=== PATIENT | male | born 1935 | race Caucasian/White ===

== ENCOUNTER 2019-03-01 06:55 | Observation (INO) | payer MEDICARE, OTHER ==
[2019-03-01] VITALS (11 sets, daily range): BP systolic 106–193; BP diastolic 63–94
[~2019-03-01] VITALS: Ht 172.7 cm; Wt 76.4 kg
[2019-03-01] MEDS ORDERED: BACITRACIN 50,000 UNIT in IV NORMAL SALINE 250ML 250 ML IRR ONE (07:15)
[2019-03-01 07:35] LABS: HEMATOCRIT 46.8 % (39.0-53.0); HEMOGLOBIN 15.8 g/dL (13.0-17.5); RED BLOOD COUNT 4.92 x10^6/uL (4.30-5.70); RED CELL DISTRIBUTION WIDTH 14.1 % (11.5-14.5); WHITE BLOOD COUNT 7.9 x10^3/uL (4.0-11.0)
[2019-03-01] MEDS ORDERED: CURC10PO PO (07:41)
[2019-03-01] MEDS ORDERED: ALPH600C5 PO (07:41)
[2019-03-01] MEDS ORDERED: VITA1TAB19 PO (07:41)
[2019-03-01] MEDS ORDERED: DABI150C PO (07:41)
[2019-03-01] MEDS ORDERED: MULT1TAB52 PO (07:41)
[2019-03-01] MEDS ORDERED: B12 PO (07:41)
[2019-03-01] MEDS ORDERED: HYDR-2145 PO (07:41)
[2019-03-01] MEDS ORDERED: MAGN400C PO (07:41)
[2019-03-01] MEDS ORDERED: OMEG1600 PO (07:41)
[2019-03-01] MEDS ORDERED: beta glucan PO (07:41)
[2019-03-01] MEDS ORDERED: CHOL500016 PO (07:41)
[2019-03-01] MEDS ORDERED: MILK500C PO (07:41)
[2019-03-01] MEDS ORDERED: UBIQ200C PO (07:41)
[2019-03-01] MEDS ORDERED: LEVO7.5T7 PO (07:41)
[2019-03-01] MEDS ORDERED: LACT1CAP29 PO (07:41)
[2019-03-01] MEDS ORDERED: [UNRECOGNIZED DRUG - OTHER] PO (07:41)
[2019-03-01] MEDS ORDERED: LISI-130 PO (07:41)
[2019-03-01 07:45] LABS: PROTHROMBIN TIME PATIENT 12.6 SEC (11.7-14.0)
[2019-03-01 07:48] LABS: CALCIUM 9.7 mg/dL (8.5-10.1); GFR 71.7
[2019-03-01] MEDS ORDERED: fentaNYL PF VIAL 100 MCG/2 ML VIAL ONE (08:18)
[2019-03-01] MEDS ORDERED: MIDAZOLAM HCL/PF 2 MG/2 ML VIAL. ONE (08:18)
[2019-03-01] MEDS ORDERED: LIDOCAINE 2%/EPI 1:100,000 20 ML VIAL. ONE (08:48)
--- NOTE | 2019-03-01 08:56 | EKG ---
[facility] [address] [place] [address] Test Date: 2019-03-01 Test Time: 07:29:29 Pat Name: LEE WESLEY Department: Room: Gender: M Surg Physician Asst: NENA : 1935 Requested By: BYRON THOMAS Order Number: [id number] Reading MD: Measurements Intervals [place] Rate: 56 P: NM: QRS: 24 QRSD: 94 T: 6 QT: 448 QTc: 435 Interpretive Statements IRREGULAR RHYTHM, NO P-WAVE FOUND OTHERWISE NORMAL ECG RI6.01 Unconfirmed report No previous ECG available for comparison
[2019-03-01] MEDS ORDERED: LIDOCAINE 2%/EPI 1:100,000 20 ML VIAL. IJ ONE (09:00)
[2019-03-01] MEDS ORDERED: fentaNYL PF VIAL 100 MCG/2 ML VIAL IV ONE (09:00)
[2019-03-01] MEDS ORDERED: MIDAZOLAM HCL/PF 2 MG/2 ML VIAL. IV ONE (09:00)
--- NOTE | 2019-03-01 10:20 | PDOC ---
MODERATE SEDATION ASSESSMENT RISKS/ALTERNATIVES Risks/Alternatives Risks and alternatives of this type of sedation and procedure discussed with: RISK/ALTERNATIVES: Patient H & P ON CHART H & P H & P on chart and reviewed for co-morbid conditions and appropriate labs. H&P ON CHART: Yes STATUS PREG STATUS ASSESSED: N/A MEDS/ALLERGIES REVIEWED Meds/Allergies Reviewed Medications and Allergies including time and route of recently administered narcotics and sedatives. MEDS/ALLERGIES REVIEWED: Yes ASA RATING ASA RATING: II AIRWAY ASSESSMENT Airway Assessment Airway patency, oral function limitations, presence of caps, crowns, dentures, partials, and ability to extend neck assessed. AIRWAY ASSESSMENT: Yes MALLAMPATI SCORE MALLAMPATI SCORE: II PRE-SEDATION ASSESSMENT PRE-SEDATION ASSESSMENT: Yes BYRON THOMAS MD Mar 01, 2019 10:20
[2019-03-01] MEDS ORDERED: NO ANTICOAGULANT THERAPY. MC PRN (10:30)
--- NOTE | 2019-03-01 10:32 | CARD ---
MR#: [id number] Date of Study: 03/01/2019 Ordering Physician: BYRON HOLLAND, Referring Physician: BYRON HOLLAND, Tech: APPROVED REPORT PROCEDURES Successful implantation of Biotronik dual-chamber permanent pacemaker Fluoro time: 2.9min Dose: 8 Gycm2 Moderate sedation:50 min INDICATIONS Sick sinus syndrome, tachycardia-bradycardia syndrome with significant pauses of greater than 4 secon ds PROCEDURE After explaining the risks, benefits, and alternative options, informed consent was obtained from the patient. The patient was brought to the cardiac catheterization lab and the left chest and shoulder were prepp ed and draped in a sterile manner. 30 mL of 2% lidocaine was infiltrated into the skin and subcutaneous tissues for local anesthesia. An incision was made over the left infraclavicular fossa and using blunt dissection and cautery a pocke t was created. Venous access was obtained in the left subclavian vein and 8 and 6 Sinhala sheath inser cecile. A Biotronik bipolar active fixation right ventricular lead model Solia, serial #[id number] was advanced under fluoroscopy guidance and the tip was positioned in the right ventricular apex. Following this, a Biotronik bipolar active fixation right atrial lead model Solia, serial #[id number] was positioned i n the right atrial appendage under fluoroscopy guidance. The leads were secured into place and attach ed to a Biotronik dual-chamber permanent pacemaker generator model Eluna 8 DR-T Pro-MRI, serial #[id number]. This was placed in the pocket was subsequently closed in 3 layers. Hemostasis was secured. The right ventricular lead showed a sensing amplitude of 10.3 mV, impedance of 718 ohms and a thresho ld of 0.5 V. The right atrial lead showed impedance of 491 ohms. Threshold could not be measured sinc e patient was in atrial fibrillation. He tolerated the procedure well. There were no immediate compli cations. CONCLUSION Successful implantation of Biotronik dual-chamber permanent pacemaker for sick sinus syndrome, tachyc ardia-bradycardia syndrome and significant pauses. Signed by : Byron Holland, Electronically Approved : 03/01/2019 10:31:48
--- NOTE | 2019-03-01 11:27 | RAD ---
PORTABLE CHEST 1V Clinical indications: Post pacemaker placement COMPARISON: None available. Findings: Bipolar atrioventricular pacemaker has been placed via a left subclavian approach. No pneumothorax or pleural effusion is seen. There is mild bilateral perihilar interstitial pulmonary edema. No lung consolidation is seen. Heart size is prominent. There is a retrocardiac density which most likely represents a hiatal hernia. The upper mediastinum is unremarkable. The pulmonary vasculature is unremarkable. IMPRESSION: Placement of pacemaker without pneumothorax or pleural effusion. Mild interstitial pulmonary edema. Prominent hiatal hernia. Electronically signed by: Missael Rudolph MD (03/01/2019 11:24 AM) [place] [id number]
[2019-03-02] VITALS: BP 139/90
[2019-03-02 04:00] VITALS: BP 135/85
[2019-03-02 08:13] VITALS: BP 163/90
--- NOTE | 2019-03-02 09:45 | RAD ---
Examination: 2 views of the chest HISTORY: History of post pacemaker placement COMPARISON: 03/18/2019. FINDINGS: Moderate cardiomegaly. Left-sided cardiac pacer is in place. There is no acute infiltrate or visualized pneumothorax. Large hiatal hernia is again identified. Moderate degenerative changes thoracic spine. IMPRESSION: 1. Left-sided pacemaker in place. No pneumothorax. 2. Large hiatal hernia. Electronically signed by: Berhane Garcias MD (03/02/2019 9:43 AM) [id number]
--- NOTE | 2019-03-02 11:48 | PDOC3 ---
Discharge Summary Visit Information Date of Admission: Mar 01, 2019 Date of Discharge: Mar 02, 2019 Admitting Diagnosis: SSS, tachy-william syndrome PPM placement Final Diagnosis SSS, tachy william syndrome, PPM placement. PAFIB Brief Hospital Course Allergies Allergies Coded Allergies Type Severity Reaction Last Updated Verified No Known Drug Allergies 03/01/19 No Vital Signs Vital Signs Date Time Temp Pulse Resp B/P (MAP) Pulse Ox O2 Delivery O2 Flow Rate FiO2 03/02/19 08:13 98.1 69 16 163/90 (114) Room Air 98.1 03/02/19 04:00 98 Lab Results Laboratory Tests Test 03/01/19 07:30 White Blood Count 7.9 x10^3/uL (4.0-11.0) Red Blood Count 4.92 x10^6/uL (4.30-5.70) Hemoglobin 15.8 g/dL (13.0-17.5) Hematocrit 46.8 % (39.0-53.0) Mean Corpuscular Volume 95 fL (79-100) Mean Corpuscular Hemoglobin 32 pg (25-35) Mean Corpuscular Hemoglobin Concent 34 g/dL (31-37) Red Cell Distribution Width 14.1 % (11.5-14.5) Platelet Count 182 x10^3/uL (140-400) Prothrombin Time 12.6 SEC (11.7-14.0) Prothromb Time International Ratio 1.0 (0.8-1.1) Sodium Level 142 mmol/L (136-145) Potassium Level 4.0 mmol/L (3.5-5.1) Chloride Level 105 mmol/L (98-107) Carbon Dioxide Level 29 mmol/L (21-32) Anion Gap 8 (6-14) Blood Urea Nitrogen 24 mg/dL (8-26) Creatinine 1.0 mg/dL (0.7-1.3) Estimated GFR (Cockcroft-Gault) 71.7 Glucose Level 92 mg/dL (70-99) Calcium Level 9.7 mg/dL (8.5-10.1) Brief Hospital Course Mr. Winters is a pleasant 83 yo male admitted for elective PPM placement. Successful implantation of Biotronik dual-chamber permanent pacemaker for sick sinus syndrome, tachycardia-bradycardia syndrome and significant pauses. He tolerated the procedure well without any complications. His left chest incision is intact and dry with steristrips and open to air. No oozing and no erythema or swelling. Neurovascular status to left arm is intact. VSS. Ambulatory without difficulty. Repeat interrogation revealed normal function and no further adjustment. He is to resume his pradaxa for stroke prevention and his medication has been modified to include metoprolol for AFIB coverage which is rate controlled. HBPM has been encouraged for further BP med adjustment. Home today and follow up in office for wound check in 2 weeks. Post pacer instruction has been reviewed with pt. Discharge Information Condition at Discharge: Stable Follow Up: Weeks (2) Disposition/Orders: D/C to Home Scheduled Alpha Lipoic Acid (Alpha Lipoic Acid) 600 Mg Capsule, 600 MG PO DAILY for , (R eported) Entered as Reported by: STEPHANIE BORJA on 03/01/19740 Last Action: HELD on 03/02/191207 by SHY MCQUEEN Cholecalciferol (Vitamin D3) (Vitamin D3) 5,000 Unit Tablet, 5,000 UNIT PO DAILY for , (Reported) Entered as Reported by: STEPHANIE BORJA on 03/01/19740 Last Action: HELD on 03/02/191207 by SHY MCQUEEN Curcumin (Curcumin) 10 Gm Powder, 400 MG PO DAILY for , (Reported) Entered as Reported by: STEPHANIE BORJA on 03/01/19740 Last Action: HELD on 03/02/191207 by SHY MCQUEEN Dabigatran Etexilate Mesylate (Pradaxa) 150 Mg Capsule, 1 CAP PO BID for , #180 Ref 3 (Reported) Entered as Reported by: STEPHANIE BORJA on 03/01/19740 Last Taken: Unknown Dose on 02/26/19 Last Action: Continued on 03/02/191207 by SHY MCQUEEN Hydrochlorothiazide (Hydrochlorothiazide Tablet ) 25 Mg Tablet, 25 MG PO DAILY for DIURETIC, Ref 0 (Reported) Entered as Reported by: STEPHANIE BORJA on 03/01/19740 Last Action: Continued on 03/02/191207 by SHY MCQUEEN Lactobacillus Combo No.10 (Probiotic) 1 Each Capsule, 1 EACH PO DAILY for , (Reported) Entered as Reported by: STEPHANIE BORJA on 03/01/19740 Last Action: HELD on 03/02/191207 by SHY MCQUEEN Levomefolate Calcium (L-Methylfolate) 7.5 Mg Tablet, 1,000 MCG PO DAILY for , (Reported) Entered as Reported by: STEPHANIE BORJA on 03/01/19740 Last Action: HELD on 03/02/191207 by SHY MCQUEEN Lisinopril (Lisinopril) 40 Mg Tablet, 1 TAB PO DAILY for BP for 30 Days, #30 Ref 5 Prescribed by: SHY MCQUEEN on 03/02/194 Metoprolol Tartrate (Metoprolol Tartrate) 25 Mg Tablet, 25 MG PO BID for BPafib for 30 Days, #60 Ref 3 Prescribed by: SHY MCQUEEN on 03/02/192 Milk Thistle (Milk Thistle) 500 Mg Capsule, 600 MG PO BID for , (Reported) Entered as Reported by: STEPHANIE BORJA on 03/01/19740 Last Action: HELD on 03/02/191207 by SHY MCQUEEN [place]-3/Dha/Epa/Fish Oil (Fish Oil 1,600 mg/5 ml Liquid) 1,600 Mg/5 Ml Liquid, 4,800 MG PO DAILY for , (Reported) Entered as Reported by: STEPHANIE BORJA on 03/01/19740 Last Action: HELD on 03/02/191207 by SHY MCQUEEN Ubiquinol (Active-Q) 200 Mg Capsule, 200 MG PO DAILY for , (Reported) Entered as Reported by: STEPHANIE BORJA on 03/01/19740 Last Action: HELD on 03/02/191207 by SHY MCQUEEN Vitamin B Complex (B Complex) 1 Each Tablet, 2 EACH PO DAILY for , (Reported) Entered as Reported by: STEPHANIE BORJA on 03/01/19740 Last Action: HELD on 03/02/191207 by SHY MCQUEEN [b-12 methylcabalamin] , 1 MG PO DAILY for , (Reported) Entered as Reported by: STEPHANIE BORJA on 03/01/19740 Last Action: HELD on 03/02/191207 by SHY MCQUEEN [beta glucan ] , 3 MG PO DAILY for immune system, (Reported) Entered as Reported by: STEPHANIE BORJA on 03/01/19740 Last Action: HELD on 03/02/191207 by SHY MCQUEEN Scheduled PRN Multivitamin (Multivitamins) 1 Each Tablet, 1 EACH PO DAILY PRN for , (Reported) Entered as Reported by: STEPHANIE BORJA on 03/01/19740 Last Action: HELD on 03/02/191207 by SHY MCQUEEN Discontinued Medications Lisinopril (Zestril) 40 Mg Tablet, 40 MG PO BID for FOR HYPERTENSION, #30 Ref 0 (Reported) Entered as Reported by: STEPHANIE BORJA on 03/01/19740 Last Taken: Unknown Dose on 03/01/19 Last Action: Continued on 03/02/191207 by SHY MCQUEEN Magnesium Oxide (Magnesium) 400 Mg Capsule, 1,000 MG PO BID for , (Reported) Entered as Reported by: STEPHANIE BORJA on 03/01/19740 Last Action: HELD on 03/02/191207 by SHY MCQUEEN Patient Instructions Patient Instructions Must know & what to expect after device implant: 1. Your surgical dressing should be removed prior to discharge from the hospital, but allow the steri- strips to fall off naturally. 2. Activity restrictions: DO NOT raise arm above shoulder level, lift anything heavier than a gallon of milk, and no push or pull motions such as vacuuming/lawn mowing, no swinging motions (golf), etc for 4 weeks. 3. It is OK to use a cell phone or other electronic devices just be sure you do not store it in a breast pocket on the side where the device was placed. 4. Device will be interrogated prior to your discharge from the hospital and then every 3 months for defibrillators and every 6 months for pacemakers. You may be asked to have your device checked remotely from home as well, but this will depend on your particular physician�s preference. 5. You may remove the arm immobilizer the day after device placement. Wear the arm immobilizer/splint at night (during sleep times) for 2 week to prevent unintended arm movement that can cause lead dislodgement. 6. Do not drive for one week as the task of driving may lead to unintended arm motion that may cause lead dislodgement. The seatbelt will also rub against the incision site & cause irritation. 7. It is our recommendation that you utilize Tylenol at home for pain control. You need to call our office if you are having uncontrollable pain at the incision site. 8. Keep your incision clean and dry. It is OK to shower. DO NOT submerge in bath, pool, or hot tub, until cleared by your doctor, as this could lead to increase risk of infection.. It is OK to use regular soap just do not scrub the incision site. Water spray from shower should not directly hit the incision. Be sure to blot dry not rub. 9. Inspect your incision daily. If you notice any increased redness, swelling, or drainage, or if you start running a fever, call the office immediately. The number is [phone]. 10. For women, if you need to protect against irritation from the bra straps, you can place a piece of gauze over the incision site for cushion. Please be sure to tape it loosely to allow air to the site & remove the gauze when you remove the bra. 11. Be sure to carry your device identification information card in your wallet/purse at all times. 12. It is OK to go through security at the airport with your device, but be sure to let the TSA know prior to proceeding as the security settings change depending on varying factors. Please do whatever is requested by security at that time. 13. Some of the newer devices may be MRI compatible but, currently, the use of these devices is not widespread, so you likely will not be able to have an MRI. Please clarify this with your physician. If at any time, you feel lightheaded or dizzy/faint, stop what you are doing & lie down immediately. If you are driving, get to the side of the road quickly, turn your car off & call 911 on your cell phone. DO NOT continue to drive as this may cause an accident that seriously injures yourself &/or others. Call the office at [phone] for any questions or concerns. SHY MCQUEEN APRN Mar 02, 2019 11:48
[2019-03-02 12:08] VITALS: BP 116/75
[2019-03-02] MEDS ORDERED: METO25TA4 PO (12:12)
[2019-03-02] MEDS ORDERED: LISI-130 PO (12:14)
[2019-03-02] MEDS ORDERED: METOPROLOL TART IMMED RELEASE 25 MG TABLET. PO SCH (13:00)
[2019-03-02] MEDS ORDERED: LISINOPRIL 20 MG TABLET PO SCH (13:00)
[2019-03-02] MEDS ORDERED: hydroCHLOROthiazide 25 MG TABLET PO SCH (13:00)
--- NOTE | 2019-03-02 13:40 | NUR ---
Discharge instructions given with prescription to patient and . Answered questions and concerns. Both verbalized understanding. Has appointment already set up for March [address] Johnson. Discharged home accompanied by spouse.
[2019-03-02] MEDS ORDERED: DABIGATRAN ETEXILATE 150 MG CAPSULE. PO SCH (21:00)
== END 2019-03-02 13:40 | disposition home or self-care (01) ==
LOC: CCL 06:55 → 1 WEST ICU 09:54
PROVIDERS: ADMIT Internal Medicine Cardiovascular Disease; ATTEND Internal Medicine Cardiovascular Disease
DX: I49.5 Sick sinus syndrome (principal); I48.0 Paroxysmal atrial fibrillation
CPT/HCPCS: 33208; 36415; 71045; 71046; 80048; 85027; 85610; 93005; 96365; 96366; C1898; G0378; G0379; J0696; J2250; J3010; J3490; J7050; 99152; 99153; J7030

== ENCOUNTER → 2019-05-25 | Outpatient (CLI) | payer MEDICARE, OTHER ==
[~2019-05-25] MED LIST: ALPH600C5 PO; B12 PO; CHOL500016 PO; CURC10PO PO; DABI150C PO; HYDR-2145 PO; LACT1CAP29 PO; LEVO7.5T7 PO; LISI-130 PO; MAGN400C PO; METO25TA4 PO; MILK500C PO; MULT1TAB52 PO; OMEG1600 PO; UBIQ200C PO; VITA1TAB19 PO; [UNRECOGNIZED DRUG - OTHER] PO; beta glucan PO
--- NOTE | 2019-05-26 08:36 | CARD ---
MR#: [id number] Date of Study: 05/25/2019 Ordering Physician: DEMETRICE YANES, Referring Physician: DEMETRICE YANES, Maik: Louisa Prince APPROVED REPORT EXAM: Two-dimensional and M-mode echocardiogram with Doppler and color Doppler. Other Information Quality : AverageHR: 69bpm INDICATION Dyspnea 2D DIMENSIONS RVDd3.3 (2.9-3.5cm)Left Atrium(2D)3.9 (1.6-4.0cm) IVSd1.1 (0.7-1.1cm)Aortic Root(2D)2.3 (2.0-3.7cm) LVDd4.8 (3.9-5.9cm)LVOT Diameter2.2 (1.8-2.4cm) PWd1.0 (0.7-1.1cm)LVDs2.9 (2.5-4.0cm) FS (%) 40.4 %SV76.2 ml LVEF(%)71.0 (>50%) Aortic Valve AoV Peak Irving.114.2cm/sAoV VTI22.4cm AO Peak GR.5.2mmHgLVOT Peak Irving.83.3cm/s AO Mean GR.4mmHgAVA (VMAX)2.79cm2 AI P 1/2 Rdmj042pv Mitral Valve MV E Noviiont741.4cm/sMV E Peak Gr.5mmHg MV DECEL RZAC524trDS A Pydbnlkt25.5cm/s MV E Mean Gr.2mmHgE/A Ratio4.6 Pulmonary Valve PV Peak Ugr[place]ut644.5cm/s Tricuspid Valve TR P. Mnvpgtrk979lf/sRAP ABYNPKQM6wkDl TR Peak Gr.98hxDoDJNJ28cwRy Pulmonary Vein S1 Kackjiit30.6cm/sD2 Xggkwmyd46.9cm/s LEFT VENTRICLE The left ventricle is normal size. There is normal left ventricular wall thickness. The left ventricu lar systolic function is normal. The Ejection Fraction is 60-65%. There is normal LV segmental wall m otion. RIGHT VENTRICLE The right ventricle is normal size. There is normal right ventricular wall thickness. The right ventr icular systolic function is normal. ATRIA The left atrium size is normal. The right atrium size is normal. The interatrial septum is intact wit h no evidence for an atrial septal defect or patent foramen ovale as noted on 2-D or Doppler imaging. AORTIC VALVE The aortic valve is thickened but opens well. Doppler and Color Flow revealed trace aortic regurgitat ion. There is no significant aortic valvular stenosis. MITRAL VALVE The mitral valve is thickened but opens well. There is no evidence of mitral valve prolapse. There is no mitral valve stenosis. Doppler and Color-flow revealed trace to mild mitral regurgitation. TRICUSPID VALVE The tricuspid valve is normal in structure and function. Doppler and Color Flow revealed mild to mode rate tricuspid regurgitation. PULMONIC VALVE The pulmonic valve is not well visualized. Doppler and Color Flow revealed no pulmonic valvular regur gitation. GREAT VESSELS The aortic root is normal in size. The ascending aorta is normal in size. The IVC is normal in size a nd collapses >50% with inspiration. PERICARDIAL EFFUSION There is no pleural effusion. There is no evidence of significant pericardial effusion. Critical Notification Critical Value: No <Conclusion> The left ventricular systolic function is normal. The Ejection Fraction is 60-65%. There is normal LV segmental wall motion. Pacer wire noted RA/RV. Trace aortic regurgitation. Trace to mild mitral regurgitation. Mild to moderate tricuspid regurgitation. There is no evidence of significant pericardial effusion. Signed by : Avni Holland, Electronically Approved : 05/26/2019 08:36:09
== END | disposition home or self-care (01) ==
LOC: ECHO 13:48
PROVIDERS: ATTEND Internal Medicine Cardiovascular Disease
DX: I08.1 Rheumatic disorders of both mitral and tricuspid valves (principal)
CPT/HCPCS: 93306